=== PATIENT | female | born 1985 | race Caucasian/White ===

== ENCOUNTER 2024-06-08 10:46 | Emergency (ER) | payer SELFPAY ==
--- NOTE | 2024-06-08 12:59 | ER ---
Nurse's Notes [facility] Name: aLkia Hart Age: 39 yrs Sex: Female : 1985 Arrival Date: 06/08/2024 Time: 10:46 Bed 10 Private MD: Diagnosis: Dental caries, unspecified;Other diseases of pulp and periapical tissues Presentation: 06/08 11:16 Chief complaint: Patient states: L ear pain that radiates to L jaw x 1 week. Pt reports ss pain relief with ibuprofen, but it's getting worse. Coronavirus screen: Client denies travel out of the [place] in the last 14 days. Ebola Screen: Patient denies exposure to infectious person. Patient denies travel to an Ebola-affected area in the 21 days before illness onset. Initial Sepsis Screen: Does the patient meet any 2 criteria? No. Patient's initial sepsis screen is negative. Does the patient have a suspected source of infection? No. Patient's initial sepsis screen is negative. Risk Assessment: Do you want to hurt yourself or someone else? Patient reports no desire to harm self or others. Onset of symptoms was June 01, 2024. 11:16 Method Of Arrival: Ambulatory ss 11:16 Acuity: CLAUDIA 4 ss Historical: - Allergies: 11:17 No Known Allergies; ss - Home Meds: 11:17 "supposed to take medicine for DM" [Active]; ss - PMHx: 11:17 DM; Hypercholesterolemia; ss - PSHx: 11:17 None; ss Screenin:12 [facility] ED Fall Risk Assessment (Adult) History of falling in the last 3 months, jb4 including since admission No falls in past 3 months (0 pts) Confusion or Disorientation No (0 pts) Intoxicated or Sedated No (0 pts) Impaired Gait No (0 pts) Mobility Assist Device Used No (0 pt) Altered Elimination No (0 pt) Score/Fall Risk Level 0 - 2 = Low Risk Oriented to surroundings, Maintained a safe environment. Abuse screen: Denies threats or abuse. Nutritional screening: No deficits noted. Tuberculosis screening: No symptoms or risk factors identified. Assessment: 13:10 General: Appears in no apparent distress. uncomfortable, Behavior is calm, cooperative, jb4 appropriate for age. Pain: Complains of pain in left ear Pain radiates to left jaw Pain currently is 7 out of 10 on a pain scale. Neuro: Level of Consciousness is awake, alert, obeys commands, Oriented to person, place, time, situation. Cardiovascular: Patient's skin is warm and dry. Respiratory: Airway is patent Respiratory effort is even, unlabored, Respiratory pattern is regular, symmetrical. GI: No signs and/or symptoms were reported involving the gastrointestinal system. : No signs and/or symptoms were reported regarding the genitourinary system. EENT: Poor dentition noted. Derm: Skin is intact, Skin is pink, warm \\T\\ dry. Musculoskeletal: Circulation, motion, and sensation intact. Range of motion: intact in all extremities. Vital Signs: 11:16 BP 145 / 95; Pulse 89; Resp 14; Temp 98(TE); Pulse Ox 100% on R/A; Weight 104.33 kg; ss Height 5 ft. 0 in. ; Pain 7/10; 11:16 Body Mass Index 44.92 (104.33 kg, 152.4 cm) 11:16 Pain Scale: Adult ED Course: 10:52 Patient arrived in ED. ra3 11:05 France Lin MD is Attending Physician. gb1 11:17 Triage completed. ss 11:17 Arm band placed on right wrist. ss 13:12 Patient has correct armband on for positive identification. Bed in low position. Call jb4 light in reach. Side rails up X 1. Provided Education on: discharge instructions.. 13:12 No provider procedures requiring assistance completed. Patient did not have IV access jb4 during this emergency room visit. Administered Medications: No medications were administered Medication: 13:12 VIS not applicable for this client. jb4 Outcome: 12:58 Discharge ordered by . gb1 13:12 Discharged to home ambulatory, with family, jb4 13:12 Condition: stable 13:12 Discharge instructions given to patient, Instructed on discharge instructions, follow up and referral plans. medication usage, Demonstrated understanding of instructions, follow-up care, medications, Prescriptions given X 2, 13:14 Patient left the ED. jb4 Signatures: Josselin Michaels, RN RN Mario Hanley RN RN jb4 France Lin MD MD gb1 Luz Maria Polo ra3 Corrections: (The following items were deleted from the chart) 11:18 11:17 Home Meds: None; ss ss 13:12 13:10 Pain: Complains of pain in tooth pain Pain radiates to right ear Pain currently jb4 is 7 out of 10 on a pain scale. jb4
--- NOTE | 2024-06-08 13:14 | EDPHYS ---
Physician Documentation [facility] Name: Lakia Hart Age: 39 yrs Sex: Female : 1985 Arrival Date: 06/08/2024 Time: 10:46 Bed 10 Private MD: ED Physician France Lin HPI: 06/08 13:01 This 39 yrs old Female presents to ER via Ambulatory with complaints of Ear gb1 Pain, Jaw Pain. 13:01 39-year-old female with left jaw pain and mouth pain that is radiating to her gb1 left ear. She has a history of dental problems and has very few teeth in her mouth. Patient does not brush her teeth. She has a history of diabetes and hyperlipidemia and she does not take any of her medicines for more than a year and she has not been able to afford any of her medicines. Patient denies fever or headache.. Historical: - Allergies: 11:17 No Known Allergies; ss - Home Meds: 11:17 "supposed to take medicine for DM" [Active]; ss - PMHx: 11:17 DM; Hypercholesterolemia; ss - PSHx: 11:17 None; ss Exam: 13:01 Constitutional: This is a well developed, well nourished patient who is awake, alert, gb1 and in no acute distress. Head/Face: Normocephalic, atraumatic. Eyes: Pupils equal round and reactive to light, extra-ocular motions intact. Lids and lashes normal. Conjunctiva and sclera are non-icteric and not injected. Cornea within normal limits. Periorbital areas with no swelling, redness, or edema. ENT: Nares patent. No nasal discharge, no septal abnormalities noted. Tympanic membranes are normal and external auditory canals are clear. Oropharynx with no redness, swelling, or masses, exudates, or evidence of obstruction. This will be, uvula midline. Patient with poor dentition overall severe gingivitis and pain on the left lower root in the molar region on the lower ridge.. Patient has tenderness with light palpation and has cold and heat sensitivity as well. No brawny edema she has some mild facial swelling on the left at the buccal area. Neck: Trachea midline, no thyromegaly or masses palpated, and no cervical lymphadenopathy. Supple, full range of motion without nuchal rigidity, or vertebral point tenderness. No Meningismus. Chest/axilla: Normal chest wall appearance and motion. Nontender with no deformity. No lesions are appreciated. Cardiovascular: Regular rate and rhythm with a normal S1 and S2. No gallops, murmurs, or rubs. Normal PMI, no JVD. No pulse deficits. Respiratory: Lungs have equal breath sounds bilaterally, clear to auscultation and percussion. No rales, rhonchi or wheezes noted. No increased work of breathing, no retractions or nasal flaring. Abdomen/GI: Soft, non-tender, with normal bowel sounds. No distension or tympany. No guarding or rebound. No evidence of tenderness throughout. Back: No spinal tenderness. No costovertebral tenderness. Full range of motion. Skin: Warm, dry with normal turgor. Normal color with no rashes, no lesions, and no evidence of cellulitis. MS/ Extremity: Pulses equal, no cyanosis. Neurovascular intact. Full, normal range of motion. Vital Signs: 11:16 BP 145 / 95; Pulse 89; Resp 14; Temp 98(TE); Pulse Ox 100% on R/A; Weight 104.33 kg; ss Height 5 ft. 0 in. ; Pain 7/10; 11:16 Body Mass Index 44.92 (104.33 kg, 152.4 cm) ss 11:16 Pain Scale: Adult ss MDM: 11:31 Medical Screening Exam initiated gb1 13:01 ED course: 39-year-old female with left jaw pain consistent with endodontic etiology gb1 likely secondary to to severe dental caries that have resulted in a periapical abscess versus/concomitantly with a left facial cellulitis. Patient has very poor dentition and has not seen a dentist in many many years. She is missing many teeth as well. She has severe gingivitis as well. I recommend amoxicillin and then NSAID for pain as well as dental follow-up and likely general extraction due to severe dental caries. I encouraged patient to brush her teeth every day and take her medications and not to wait to obtain dental evaluation. I have given her close return precautions which she is compliant with prior discharge home today I doubt she has any formal diagnosis of Dimas angina as her exam does not suggest that.. 06/08 13:05 Order name: Glucose, Ancillary Testing EDMS Administered Medications: No medications were administered Disposition Summary: 06/08/24 12:58 Discharge Ordered Notes: Location: Home gb1 Problem: new gb1 Symptoms: are unchanged gb1 Condition: Stable gb1 Diagnosis - Dental caries, unspecified gb1 - Other diseases of pulp and periapical tissues gb1 Followup: gb1 - With: Private Physician - When: - Reason: Recheck today's complaints Discharge Instructions: - Discharge Summary Sheet gb1 - Dental Caries, Adult gb1 Forms: - Medication Reconciliation Form gb1 - Antibiotic Education gb1 - Prescription Opioid Use gb1 - Patient Portal Instructions gb1 - Leadership Thank You Letter gb1 - Work release form ty Prescriptions: - Amoxicillin 875 mg Oral Tablet - take 1 tablet ORAL route every 12 hours for 10 days; 20 tablet; Refills: 0, gb1 Product Selection Permitted - Ibuprofen 800 mg Oral Tablet - take 1 tablet ORAL route every 8 hours As needed take with food; 30 tablet; gb1 Refills: 0, Product Selection Permitted Signatures: Josselin Michaels RN RN ss Blocker, Gina, MD MD gb1 Corrections: (The following items were deleted from the chart) 11:18 11:17 Home Meds: None; ss ss
[2024-06-08 13:18] VITALS: BP 145/95; TEMP 98; O2SAT 100
== END 2024-06-08 13:14 | disposition home or self-care (01) ==
LOC: ER 10:46
DX: K02.9 Dental caries, unspecified (principal); K04.99 Other diseases of pulp and periapical tissues
CPT/HCPCS: 82947; 99283